=== PATIENT | male | born 1945 | race Caucasian/White ===

== ENCOUNTER → 2017-12-04 | Outpatient (CLI) | payer OTHER, BC ==
[2017-12-04 09:29] LABS: CALCIUM 9.9 mg/dL (8.5-10.1); CREATININE 1.2 mg/dL (0.7-1.3); POTASSIUM 4.3 mmol/L (3.5-5.1)
== END ==
LOC: LABMALL 08:57
PROVIDERS: Nurse Practitioner
DX: K57.10 Diverticulosis of small intestine without perforation or abscess without bleeding (principal); K57.30 Diverticulosis of large intestine without perforation or abscess without bleeding; K44.9 Diaphragmatic hernia without obstruction or gangrene; J98.4 Other disorders of lung; K76.9 Liver disease, unspecified; Z90.49 Acquired absence of other specified parts of digestive tract

== ENCOUNTER → 2017-12-06 | Outpatient (CLI) | payer OTHER, BC | LOC: MRI 13:41 | DX: K76.89 Other specified diseases of liver (principal); N28.1 Cyst of kidney, acquired; K57.90 Diverticulosis of intestine, part unspecified, without perforation or abscess without bleeding; R59.9 Enlarged lymph nodes, unspecified ==

== ENCOUNTER 2017-12-11 07:59 | Inpatient (IN) | payer OTHER, BC ==
[2017-12-11] VITALS (8 sets, daily range): BP systolic 98–1065; BP diastolic 55–84
[~2017-12-11] VITALS: Ht 172.7 cm; Wt 72.3 kg
--- NOTE | ~2017-12-11 | PATH ---
[facility] [place] [address] PATHOLOGY RPT PROCEDURE Name: TOMMIE SIMEON Aryan Room #: 432-P [facility] IN .R.#: [id number] Admission: 12/11/17 Date of : 49 Discharge: 12/12/17 Report #: [id number] Path Case #: [id number] [facility] Accession Number: [id number] . 01 Material submitted: . BIOPSY, DISTAL ESOPHAGUS . 01 Clinical history: . Pre-OP DX: Abdominal pain Post-OP DX: Mass lesion distal esophagus, hiatal hernia . 02 Diagnosis: Squamous mucosa, mass lesion distal esophagus, endoscopic biopsy: - MODERATE TO POORLY DIFFERENTIATED CARCINOMA (PLEASE SEE COMMENT). (IUV:ayla; 12/13/2017) QMS/12/13/2017 . 02 Comment: Examination shows a malignant epithelial tumor with scattered rare areas of intracytoplasmic mucin as well as other areas in sheets with no gland formation. The overlying squamous epithelium shows reactive features. In situ dysplasia is not identified. There is no glandular component present within the tumor, or within the biopsy tissue (gastric-type mucosa or intestinal metaplasia). The tumor is morphologically similar to the one present and sampled as "liver mass", our biopsy number [id number]. Please see separate report for details. . Co-review: Dr. Almaz Colvin . Findings are conveyed to Dr. Andres Vargas at approximately 11:15 a.m. on 12/13/2017. . 02 Addendum: . In an attempt to further characterize the moderate to poorly differentiated carcinoma, properly controlled immunohistochemical stains are performed. . (Block A1) CDX-2: tumor cell nuclei diffusely reactive P63: tumor cell nuclei essentially non-reactive CK7: very rare scattered tumor cells reactive . Overall, the immunohistochemical staining pattern is suggestive of a moderate to poorly differentiated adenocarcinoma. Clinical and radiographic correlation is required. (CLW:; 12/14/17) . [address] [address] PATHOLOGY RPT PROCEDURE Name: TOMMIE SIMEON Room #: 432-P [facility] IN M.R.#: [id number] Admission: 12/11/17 Date of : 49 Discharge: 12/12/17 Report #: [id number] Path Case #: [id number] . QRQ/12/14/2017 Addendum Electronically Signed by Almaz Colvin MD, Pathologist . 02 Electronically signed: . Parris Joe MD, Pathologist NPI- [id number] . 01 Gross description: . Received in formalin labeled "Tommie Simeon, BX mass lesion distal esophagus," are multiple segments of baird soft tissue measuring 2.3 x 0.4 x 0.2 cm in aggregate dimensions. The specimen is filtered and submitted entirely in cassette A1. (TSD; 12/12/2017) TOB/TOB . 02 Pathologist provided ICD-10: C15.5 . 02 CPT . 853249 Performed at: [address], [place] [id number] MD Osmany Vilchis MD Phone: [phone] Performed at: [address] [id number] MD Parris Joe MD Phone: [phone]
--- NOTE | ~2017-12-11 | P ---
[facility] [place] [address] PROCEDURE REPORT Name: DONNA SIMEON Aryan Room #: 432-P [facility] IN M.R.#: [id number] Admission: 12/11/17 Attend Phys: Andres Vargas MD Discharge: 12/12/17 Date of : 49 Report #: [id number] THIS REPORT FOR: //name// CC: Andres Vargas MD UPPER ENDOSCOPY REPORT BRIEF HISTORY: The patient is a 72-year-old male who recently developed diffuse upper abdominal pain. He also reported black stool and he does have some difficulty with swallowing liquids. He has also had weight loss. A CT done yesterday reveals evidence of multiple lesions in the liver suggestive of metastatic disease. PREOPERATIVE DIAGNOSES: Abdominal pain, dysphagia and weight loss. POSTOPERATIVE DIAGNOSES: 1. Mass lesion in the distal esophagus. 2. Erythematous gastritis. 3. Multiple duodenal diverticulum. MEDICATIONS: Deep sedation with propofol per anesthesia. SPECIMEN: Biopsies of esophageal mass. ESTIMATED BLOOD LOSS: 3 mL. PROCEDURE: EGD with biopsy. FINDINGS: Prior to propofol sedation, procedure of upper endoscopy was discussed with the patient as well as potential risks and its complications. He indicates he understands and desires to proceed. DESCRIPTION OF PROCEDURE: With the patient in left lateral decubitus position, the Fuji video endoscope was inserted in the cervical esophagus under direct vision without difficulty. Examination of this organ through its entire length revealed normal esophageal mucosa in the proximal esophagus; however, distally, there was a mass lesion and more proximally appeared to be a bilobed mass lesion. Distally, it was superficial ulcerative, but active bleeding was not encountered at this time. The lesion measures about 3-4 cm in length. It bulges in the lumen, but does not completely obstructing. The endoscope does pass easily to the lesion. The scope was advanced beyond the lesion and a small hiatus hernia was encountered. The mucosa and hernia was unremarkable. Scope was advanced in the stomach, was examined on end view as well as retroflexed views. There was a pattern of erythema, but no ulcers or erosions were seen. There were no retained solids or liquids in the stomach. Upon retroflexion, no mass lesions were seen. However, in the retroflexed position, you could see the [address] [address] PROCEDURE REPORT Name: BLANCODONNA Aryan Room #: 432-P [facility] IN [facility].#: [id number] Admission: 12/11/17 Attend Phys: Andres Vargas MD Discharge: 12/12/17 Date of : 49 Report #: [id number] ulcerated lesion extending down to the gastroesophageal junction. The pylorus and duodenal bulb was normal. Examination of postbulbar duodenum revealed at least two diverticula one which was a large diverticulum seen on CT. The other was smaller. At that point, the scope was slowly withdrawn and careful circumferential views were obtained. Biopsies were obtained of the mass lesion. The patient tolerated the procedure well. DISPOSITION: The patient with findings of a mass lesion distal esophagus. A suspicion is obviously of an esophageal cancer with metastatic disease to the liver. We will follow up on biopsies obtained today as well as results of liver biopsy yesterday. By: 1214 0033 Devin Cook MD /nt
--- NOTE | ~2017-12-11 | PATH ---
[facility] [address] [place] [address] PATHOLOGY RPT PROCEDURE Name: TOMMIE SIMEON Room #: 432-P [facility] IN M.R.#: [id number] Admission: 12/11/17 Date of : 49 Discharge: 12/12/17 Report #: [id number] Path Case #: [id number] [facility] Accession Number: [id number] . 01 Material submitted: . FOCAL LIVER MASS BX . 01 Clinical history: . Focal liver mass . 02 Diagnosis: Liver, liver mass, needle core biopsy: - POSITIVE FOR MALIGNANCY; COMPATIBLE WITH A METASTATIC CARCINOMA MORPHOLOGICALLY SIMILAR TO THE "MASS LESION DISTAL ESOPHAGUS." (SEE COMMENT) QRQ/12/13/2017 . 02 Comment: The tumor is morphologically identical to the one sampled as "mass lesion distal esophagus" our specimen number [id number]. Please see separate report for details. . Co-review: Dr. Almaz Colvin . These findings are conveyed to Dr. Andres Vargas at approximately 11:15 a.m. on 12/13/17. (IUV:mgr; 12/13/17) . 02 Electronically signed: . Parris Joe MD, Pathologist NPI- [id number] . 01 Gross description: . Received in formalin labeled "Tommie Simeon, liver mass BX" and consists of 5 montoya red tissue cores ranging in length from 0.2 cm-1.3 cm, each with a uniform diameter of 0.1 cm. The specimen is entirely submitted as A1. (KAMRYN; 12/12/2017) JBR/JBR . 02 Pathologist provided ICD-10: C78.7 . 02 CPT . 076502 Performed at: [facility] [address] [id number] [address] [place] [address] PATHOLOGY RPT PROCEDURE Name: TOMMIE SIMEON Room #: 432-P [facility] IN [facility].#: [id number] Admission: 12/11/17 Date of : 49 Discharge: 12/12/17 Report #: [id number] Path Case #: [id number] MD Osmany Vilchis MD Phone: [phone] Performed at: [address] [id number] MD Parris Joe MD Phone: [phone]
[2017-12-11 08:33] LABS: HEMATOCRIT 47.2 % (42.0-52.0); MCH 30.2 pg (26.0-34.0); MCHC 33.8 g/dL (28.0-37.0); MCV 89.5 fL (80.0-100.0); RBC 5.28 mil/uL (4.50-6.00); RDW 12.9 % (10.5-14.5); WBC 7.1 thou/uL (4.0-11.0)
[2017-12-11 08:46] LABS: ALBUMIN 4.2 g/dL (3.4-5.0); CALCIUM 9.6 mg/dL (8.5-10.1); CREATININE 1.3 mg/dL (0.7-1.3); POTASSIUM 5.3 mmol/L (3.5-5.1); TOTAL BILIRUBIN 0.5 mg/dL (<0.1-1.0); TOTAL PROTEIN 7.9 g/dL (6.4-8.2)
[2017-12-11] MEDS ORDERED: PERCOCET PO (21:13)
[2017-12-11] MEDS ORDERED: PROTONIX 20 MG20 M1 PO (21:14)
[2017-12-11] MEDS ORDERED: PRAVACHOL20 MG PO (21:14)
[2017-12-11] MEDS ORDERED: CARAFATE 1 GM TA1 G1 PO (21:14)
[2017-12-12 04:15] VITALS: BP 110/70
[2017-12-12 06:35] LABS: ALBUMIN 3.3 g/dL (3.4-5.0); CALCIUM 8.8 mg/dL (8.5-10.1); CREATININE 1.1 mg/dL (0.7-1.3); POTASSIUM 4.6 mmol/L (3.5-5.1); TOTAL BILIRUBIN 0.4 mg/dL (<0.1-1.0); TOTAL PROTEIN 6.3 g/dL (6.4-8.2)
[2017-12-12 07:43] VITALS: BP 135/87
[2017-12-12] MEDS ORDERED: OXYCODONE-APAP1 EAC6 PO (13:06)
[2017-12-12 16:28] VITALS: BP 151/98
[2017-12-12 17:22] VITALS: BP 151/98
== END 2017-12-12 18:45 | disposition home or self-care (01) | DRG 392 ==
LOC: 4E 07:59 → ENTRNSPT 12-12 17:43 → 4E 12-12 18:45
PROVIDERS: Family Medicine
PROC: 0DB58ZX Excision of Esophagus, Via Natural or Artificial Opening Endoscopic, Diagnostic (ICD-10-PCS; principal; 2017-12-12)
PROC: 0FB13ZX Excision of Right Lobe Liver, Percutaneous Approach, Diagnostic (ICD-10-PCS; 2017-12-12)
DX: K22.2 Esophageal obstruction (principal); K57.12 Diverticulitis of small intestine without perforation or abscess without bleeding; K76.9 Liver disease, unspecified; R16.0 Hepatomegaly, not elsewhere classified; K57.10 Diverticulosis of small intestine without perforation or abscess without bleeding; E78.00 Pure hypercholesterolemia, unspecified; K29.70 Gastritis, unspecified, without bleeding; R63.0 Anorexia; K21.9 Gastro-esophageal reflux disease without esophagitis; Z90.49 Acquired absence of other specified parts of digestive tract; K44.9 Diaphragmatic hernia without obstruction or gangrene; R13.10 Dysphagia, unspecified; Z98.42 Cataract extraction status, left eye; Z98.41 Cataract extraction status, right eye; Z87.891 Personal history of nicotine dependence
CPT/HCPCS: 10783; 62110; 62900; 70005

== ENCOUNTER → 2017-12-21 | Outpatient (CLI) | payer OTHER, BC ==
[~2017-12-21] VITALS: Ht 172.7 cm; Wt 72.6 kg
[~2017-12-21] MED LIST: ALLEGRA ALLERG180 MG PO; ASPIR 8181 MG PO; CALCIUM 500 +1 EAC5 PO; CARAFATE 1 GM TA1 G1 PO; MEN'S MULTI-VI1 EACH PO; OXYCODONE-APAP1 EAC6 PO; OXYCONTIN20 M1 PO; PERCOCET 7.5-31 EACH PO; PERCOCET PO; PRAVACHOL20 MG PO; PROTONIX 20 MG20 M1 PO
--- NOTE | ~2017-12-21 | P ---
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 He is having esophageal dysphagia and also having pain with swallowing. He has been losing weight as well. Next week, he is to start chemoradiation. PREOPERATIVE DIAGNOSIS: Metastatic adenocarcinoma of the esophagus with esophageal dysphagia and painful swallowing. POSTOPERATIVE DIAGNOSIS: Metastatic adenocarcinoma of the esophagus with esophageal dysphagia and painful swallowing. MEDICATIONS: Deep sedation with propofol for anesthesia. SPECIMEN: None. ESTIMATED BLOOD LOSS: 3 mL. PROCEDURE: Percutaneous endoscopic gastrostomy tube placement. FINDINGS: The procedure of PEG tube placement was discussed with the patient as well potential risks and its complications. He indicates he understands and desires to proceed. The patient was placed in the supine position with his head and chest raised about 30 degrees. Subsequently, Olympus video endoscope was inserted in the cervical esophagus under direct vision without difficulty. Examination of this organ throughout its entire length revealed normal esophageal mucosa in the proximal and mid esophagus. However, once again distally the mass lesion was identified. Active bleeding was not seen. The scope was very carefully passed through the lumen and passed easily through the segment with the tumor into the gastric lumen. The scope was advanced in the stomach and was examined on end view as well as retroflexed views. He had normal appearing gastric mucosa. Upon retroflexion, no mass lesions were seen. The pylorus was normal. Duodenal bulb was normal. The scope was then withdrawn back into the stomach and light was aimed against the anterior gastric wall. A good transilluminating light was seen in the upper abdomen just left of the midline. The skin was prepped and draped using usual sterile technique. The skin was subsequently infiltrated with Xylocaine and using a safetrack technique, the infiltrating needle was advanced in the gastric lumen under direct endoscopic vision without difficulty. [address] [address] PROCEDURE REPORT Name: DONNA SIMEON Aryan Room #: [facility]#: [id number] Admission: 12/21/17 Attend Phys: Devin Cook MD Discharge: Date of : 49 Report #: [id number] Then the area was infiltrated with Xylocaine. Subsequently, a 1 cm skin incision was made. Introducer needle and stylet were advanced in the gastric lumen under direct endoscopic vision without difficulty. A guidewire was advanced, retrieved and pulled out of the mouth. Subsequently, a 20-Malay feeding gastrostomy tube was advanced over the wire. The leading edge was seen coming through the incision, was grasped and pulled into place. The scope was reinserted. The external restraining device was applied and final adjustments were made under direct endoscopic vision. The patient tolerated the procedure well. CONDITION OF THE PATIENT UPON DISCHARGE: Following the procedure, the patient was drowsy. He will be discharged home when fully ambulatory. INSTRUCTIONS TO THE PATIENT AND FAMILY AT THE TIME OF DISCHARGE: The patient with adenocarcinoma of the esophagus. He will require nutritional support especially with chemoradiation. PEG tube placed without difficulty. We will place consult to home health services for outpatient PEG tube feedings. Also, he should remain n.p.o. for the next 4 hours. Thereafter, he can take clear liquids for the remainder of the day. He may start PEG tube feedings tomorrow. Also I will have him return to see me in followup in the office in about 2 weeks. <ELECTRONICALLY SIGNED> By: Devin Cook MD 12/21/17 1122 0852 0941 Devin Cook MD /nt
== END | disposition home or self-care (01) ==
LOC: GI 07:16
DX: C78.89 Secondary malignant neoplasm of other digestive organs (principal); C22.7 Other specified carcinomas of liver
CPT/HCPCS: 62110; 62900

== ENCOUNTER 2018-04-14 07:15 | Inpatient (IN) | payer OTHER, BC ==
[~2018-04-14] VITALS: Ht 172.7 cm; Wt 69.0 kg
[2018-04-14] VITALS (36 sets, daily range): BP systolic 81–134; BP diastolic 26–85
--- NOTE | ~2018-04-14 | HC ---
[facility] [place] [address] CONSULTATION Name: DONNA SIMEON Aryan Room #: 240-P ADM IN .R.#: [id number] Admission: 04/14/18 Attend Phys: Alfred Maharaj MD Discharge: Date of : 49 Report #: [id number] THIS REPORT FOR: //name// CC: Alfred Escobar MD DATE OF SERVICE: 04/14/2018 HISTORY OF PRESENT ILLNESS: The patient is a 73-year-old male with a history of metastatic esophageal cancer. This was diagnosed in December of this year by my partner, Dr. Cook. He was noted to have metastatic disease to his liver. He apparently has been undergoing chemotherapy treatment at and recently received his eighth round of chemotherapy. He reports an episode of feeling very weak and falling to the ground this morning. He also had an episode of hematemesis. No previous or recent history of GI bleed. He has been on Xarelto for pulmonary embolus apparently, was also on aspirin. He does take Carafate and Protonix as well. He denies any melena or bright red blood per rectum. He has a PEG tube that was placed earlier this year. This was aspirated with bright red blood noted. He is feeling weak in general. He has not had a CT scan of the abdomen and pelvis, which showed evidence of metastatic disease but no other acute findings at this time. His hemoglobin on admission was 9.5 at 7:25 this morning. He is now in the ICU. He is on Levophed. His hemoglobin at 10:05 was 4.7. This was prior to beginning his blood transfusion, which he is actually on the second unit of packed cells at this time. He was given octreotide. He is on a Protonix drip. He has also been given the reversal agent for Xarelto. The patient is currently alert. Denies any significant abdominal pain. No chest pain or shortness of breath. He does feel cold. Again, he feels weak in general. PAST MEDICAL HISTORY: Esophageal cancer involving the distal esophagus. Tumor was described at 4 cm in December on upper endoscopy; history of metastatic disease to the liver, undergoing chemotherapy; history of PEG tube; previous cholecystectomy; COPD and hypercholesterolemia. MEDICATIONS ON ADMISSION: Carafate, Protonix, OxyContin, aspirin 81 mg, apparently on Xarelto and this is not listed on his sheet, calcium carbonate, multivitamin, Bree and Percocet. ALLERGIES: No known drug allergies. SOCIAL HISTORY: Previous history of cigarette smoking. He denies any alcohol use at this time. FAMILY HISTORY: [place] [address] CONSULTATION Name: BLANCODONNA Aryan Room #: 240-P [facility] IN .R.#: [id number] Admission: 04/14/18 Attend Phys: Alfred Maharaj MD Discharge: Date of : 49 Report #: [id number] REVIEW OF SYSTEMS: As per HPI. PHYSICAL EXAMINATION: VITAL SIGNS: His temperature is 36.4. Currently, his blood pressure is 125/56 with a pulse of 113. He has been significantly hypotensive throughout the morning, however, in the Emergency Room as well as in the CAT scan. He has been given IV fluids and again is getting blood at this time and respiratory rate is 14. GENERAL: He is alert and oriented x 3. He does appear to be weak. HEENT: Sclerae nonicteric. Oropharynx clear. NECK: Supple. CARDIOVASCULAR: Regular rhythm. Tachycardic. CHEST: Clear to auscultation anteriorly bilaterally. ABDOMEN: Soft. PEG tube is in place. I did flush the PEG with water and bright red blood was noted, aspirated, nontender and nondistended. EXTREMITIES: No cyanosis, clubbing or edema. LABORATORY DATA: Sodium 140, potassium 3.7, chloride 103, bicarbonate 23, BUN 22, creatinine 1.3 and glucose 172. Lactic acid level early this morning was 5.2 and repeat is 7.0. Calcium 8.3. Total bilirubin 0.6. AST 42, ALT is 41 and alkaline phosphatase is 183. Troponin less than 0.06. Albumin 2.6 and total protein 5.4. WBC is 38.4, hemoglobin was 9.5 and is 4.7 at this time and platelet count is 134. INR 1.4. RADIOLOGICAL DATA: CT of the head, moderate cerebral atrophy and no acute changes. CT scan of the chest, abdomen and pelvis today: Lungs are clear, new small areas of osteoblastic activity of the thoracic and lumbar spine suggesting bony metastatic involvement, several large low density masses within the liver, mild thickening in the esophagus at the GE junction suggesting a hiatal hernia considered minimal diverticulitis versus colitis at the junction of the descending and the sigmoid colon. ASSESSMENT AND PLAN: Hematemesis. The patient is hypotensive, significant drop in his hemoglobin. Complex case as the patient has a history of esophageal cancer with metastatic disease, on Xarelto and aspirin. I had a long discussion with the patient and could consider upper endoscopy; however, he is too unstable at this time, both from a hemoglobin standpoint as well as vital signs. I explained to the patient even if we could perform an upper endoscopy when he is more stable, if this is bleeding from the tumor, this is difficult to control if possible. At this time, we would agree with supportive care with packed cells, proton pump inhibitor, continuing to hold his anticoagulation. Of note, he was given reversal agent for his Xarelto. He is at high risk for sedation and upper endoscopy at this time. Need to continue to monitor him very closely. Obviously, the patient understands and agrees. Plan is to repeat hemoglobin after second unit of packed cells. [facility] [address] [place] [address] CONSULTATION Name: DONNA SIMEON Room #: 240-P [facility] IN [facility]#: [id number] Admission: 04/14/18 Attend Phys: Alfred Maharaj MD Discharge: Date of : 49 Report #: [id number] Thank you for allowing me to participate in his care. <ELECTRONICALLY SIGNED> By: Boaz John MD 04/15/18 0933 1226 0329 Boaz John MD /nt
--- NOTE | ~2018-04-14 | PATH ---
[facility] [place] [address] PATHOLOGY RPT PROCEDURE Name: TOMMIE SIMEON Room #: 418-P [facility] IN M.R.#: [id number] Admission: 04/14/18 Date of : 49 Discharge: 04/20/18 Report #: [id number] Path Case #: [id number] [facility] Accession Number: [id number] . 01 Material submitted: . BX OF POLYP TRANSVERSE COLON . 01 Clinical history: . Pre-op diagnosis: Anemia Post-op diagnosis: Severe pain, diverticulosis, colon polyp . 02 Diagnosis: Colonic mucosa "biopsy of polyp transverse colon": - Tubular adenoma. - There is no evidence of high-grade dysplasia or malignancy. (SHA:ayla; 04/24/2018) QMS/04/24/2018 . 02 Electronically signed: . Franki France MD, Pathologist NPI- [id number] . 01 Gross description: . The specimen is received in formalin, labeled "Tommie Simeon, biopsy of polyp in transverse colon". Received is a segment of pale baird soft tissue measuring 0.5 cm in maximum dimensions. The specimen is submitted entirely in cassette A1. (CAA; 04/23/2018) QAC/QAC . 02 Pathologist provided ICD-10: D12.3 . 02 CPT . 268023 Specimen Comment: A courtesy copy of this report has been sent to Specimen Comment: [phone], , . Specimen Comment: Report sent to , DR LORENZO / DR RIZVI Performed at: [address], [place] [id number] MD Osmany Vilchis MD Phone: [phone] Performed at: [address] [id number] MD Parris Joe MD Phone: [phone]
--- NOTE | ~2018-04-14 | HC ---
[facility] [place] [address] CONSULTATION Name: DONNA SIMEON Aryan Room #: 240-P [facility] IN .R.#: [id number] Admission: 04/14/18 Attend Phys: Alfred Maharaj MD Discharge: Date of : 49 Report #: [id number] THIS REPORT FOR: //name// CC: Boaz Vargas REQUESTING PHYSICIAN: Dr. Alfred Maharaj. REASON FOR CONSULTATION: Adenocarcinoma of esophagus and GI bleed. HISTORY OF PRESENT ILLNESS: The patient is a 73-year-old male with a diagnosis of adenocarcinoma of the distal esophagus, metastatic to liver and diagnosed on 12/04/2017. The patient has been receiving FOLFOX chemotherapy with Neulasta growth factor support and had been responding. He received his 8th cycle of chemotherapy on about 04/10/2018. The patient was admitted to the hospital on 04/14/2018 for GI bleeding. Here, he has been hypertensive, he has received 4 units of blood, he has had both some blood per rectum and also had hematemesis as mentioned. Note that he had been on Xarelto for pulmonary embolus that had been found back in January also. Also, his platelets have drifted down, he is 24,000 today. Earlier he had been on pressors, he had been thought to possibly be septic. He is now improving, the pressors are lesser amounts. PAST MEDICAL HISTORY: The patient at this time mostly complains about feeling tired and slightly short of air. Abdomen is slightly uncomfortable, though not really in pain. History as mentioned is notable for the esophageal cancer that is HER2/chanelle negative of the lower esophagus, had been responding on most recent scan done, I believe, in January and his tumor marker has been declining further. Also, has a history of PE as mentioned above. Also, history of hypercholesterolemia and GERD. Here he has had the hypertension. History of TIA in the past and history of transaminitis. Also gallbladder removal, cataract removal, COPD. 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 Currently retired. MEDICATIONS: At this time in the hospital currently include lorazepam p.r.n., vancomycin, levofloxacin, Zosyn, norepinephrine drip, pantoprazole drip, morphine p.r.n., had been on octreotide which look like it has been held. PHYSICAL EXAMINATION: GENERAL: The patient appears his stated age. He is currently in ICU bed. VITAL SIGNS: Height is 5 feet 8 inches, 172.7 cm, weight 152 pounds or 69.0 [place] [address] CONSULTATION Name: DONNA SIMEON Room #: 240-P [facility] IN [facility]#: [id number] Admission: 04/14/18 Attend Phys: Alfred Maharaj MD Discharge: Date of : 47 Report #: [id number] kilograms. Blood pressure is 106/61, temperature 98, respirations 25, pulse 82. MOOD: The patient is alert. He is conversant. NEUROLOGIC: Speech and thought pattern appear to be normal. LUNGS: Have symmetric respirations. HEART: Regular rate. ABDOMEN: Soft, no masses, mildly uncomfortable, but not tender. EXTREMITIES: Without clubbing or cyanosis. SKIN: Warm. LABORATORY DATA: Here notable for BUN of 6, creatinine 0.8. AST 42, total bilirubin 0.6, albumin 2.6. Coags normal on admission. WBC 28.9. Hemoglobin this morning is 6.6, on admission had been 9.5, then dropped to 4.7. Note that he has had 4 units of packed red blood cells so far. MCV 91.6. Platelets on admission have been 134, yesterday 41, today 24,000. Differential has excess neutrophils. UA, 1+ blood. IMAGING: This admit includes a CAT scan compared to January, which showed slight improvement and difficult to see, liver metastasis. ASSESSMENT AND PLAN: 1. 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 Hold chemotherapy at this point. The patient appears to be responding, though GI bleed makes one wonder if this is correct. 2. History of pulmonary embolism, had been on Xarelto since January, has been held. Also received Kcentra to help reverse. May need to consider IVC filter at some point. Currently, has SCDs in place. 3. Leukocytosis, could be in part related to Neulasta growth factor or sepsis. I agree with antibiotics. Cultures pending. 4. Gastrointestinal bleed, has been seen by Gastroenterology, is on PPI. Had been on octreotide transfuse. Would agree that an endoscopy when the patient is more stable is appropriate. At this point, I would be leery that we might knock the clot loose and increase bleeding. We will defer to GI, but I would lean towards observation at this point. 5. Hypertension, pressors as needed. 6. Anemia. Transfuse to keep hemoglobin of 7. Has received 4 units, will probably receive another unit today. We will follow q. 6 CBCs. 7. Platelets drifting down. We will arrange for single donor platelets today. We would like to keep platelets above 411661-05,000. 8. Nutrition, probably begin feeding. 9. Hyperlipidemia, meds per others. 10. Chronic obstructive pulmonary disease per others. [facility] [address] [place] [address] CONSULTATION Name: BLANCODONNA Room #: 240-P [facility] IN .R.#: [id number] Admission: 04/14/18 Attend Phys: Alfred Maharaj MD Discharge: Date of : 47 Report #: [id number] PROGNOSIS: Guarded at this time. <ELECTRONICALLY SIGNED> By: Kun Escobar MD 04/18/18 0738 0756 2036 Kun Escobar MD /nt
--- NOTE | ~2018-04-14 | EKG ---
[address] [place] [address] ELECTROCARDIOGRAM REPORT Name: BLANCODONNA Room #: 240-[facility] IN ..#: [id number] Admission: 04/14/18 Attend Phys: Alfred Maharaj MD Discharge: Date of : 47 Report #: [id number] THIS REPORT FOR: //name// [facility] ED Test Date: 2018-04-14 Test Time: 07:38:40 Pat Name: DONNA SIMEON Department: Room: 240 Gender: M Tube Balancer: JAMIE : 1945 Requested By: Cristina Galarza Order Number: [id number] MD: Lamberto Bosch Measurements Intervals [place] Rate: 103 P: 79 NE: 145 QRS: 0 QRSD: 75 T: 64 QT: 359 QTc: 470 Interpretive Statements Sinus tachycardia Low voltage, extremity leads Compared to ECG 01/23/2018 21:44:34 No significant change was found Electronically Signed On 04-16-2018 8:53:48 CDT by Lamberto Bosch [email or web address] <ELECTRONICALLY SIGNED> By: Lamberto Bosch MD, [facility] 04/16/18 0853 7 7 Lamberto Bosch MD, [facility] /EPI
[2018-04-14 07:47] LABS: HEMATOCRIT 28.8 % (42.0-52.0); HEMOGLOBIN 9.5 gm/dL (14.0-18.0); MCH 32.9 pg (26.0-34.0); MCHC 33.1 g/dL (28.0-37.0); MCV 99.2 fL (80.0-100.0); PLATELET COUNT 134 thou/uL (150-400); RDW 19.2 % (10.5-14.5); WBC 38.4 thou/uL (4.0-11.0)
[2018-04-14 07:57] LABS: ANION GAP 14 mmol/L (7-16); BUN 22 mg/dL (7-18); CALCIUM 8.3 mg/dL (8.5-10.1); CHLORIDE 103 mmol/L (98-107); CO2 23 mmol/L (21-32); CREATININE 1.3 mg/dL (0.7-1.3); GLUCOSE 172 mg/dL (74-106); POTASSIUM 3.7 mmol/L (3.5-5.1); SODIUM 140 mmol/L (136-145)
[2018-04-14 08:01] LABS: APTT 28.2 Seconds (24.5-32.8); INR 1.4; PROTIME 14.5 Seconds (9.3-11.4)
[2018-04-14 08:05] LABS: ALBUMIN 2.6 g/dL (3.4-5.0); SGOT 42 U/L (15-37); SGPT 41 U/L (30-65); TOTAL BILIRUBIN 0.6 mg/dL (<0.1-1.0); TOTAL PROTEIN 5.4 g/dL (6.4-8.2); TROPONIN-I <0.06 ng/mL (<0.06)
[2018-04-14 08:36] LABS: ABSOLUTE NEUTROPHILS 36.5 thou/uL (1.4-8.2)
[2018-04-14 08:37] LABS: ANISOCYTOSIS 2+
[2018-04-14 11:47] LABS: HEMOGLOBIN 4.7 gm/dL (14.0-18.0)
[2018-04-14 11:48] LABS: HEMATOCRIT 14.7 % (42.0-52.0)
[2018-04-14 13:52] LABS: HEMATOCRIT 26.2 % (42.0-52.0)
[2018-04-14 13:55] LABS: HEMOGLOBIN 8.9 gm/dL (14.0-18.0)
[2018-04-15] VITALS (77 sets, daily range): BP systolic 82–144; BP diastolic 45–79
[2018-04-15 03:54] LABS: CALCIUM 7.4 mg/dL (8.5-10.1); CREATININE 1.1 mg/dL (0.7-1.3)
[2018-04-15 04:00] LABS: POTASSIUM 4.9 mmol/L (3.5-5.1)
[2018-04-15 04:39] LABS: MCH 30.6 pg (26.0-34.0); MCHC 33.1 g/dL (28.0-37.0); RBC 2.28 mil/uL (4.50-6.00); RDW 18.6 % (10.5-14.5)
[2018-04-15 04:48] LABS: MCV 92.5 fL (80.0-100.0); WBC 51.7 thou/uL (4.0-11.0)
[2018-04-15 18:01] LABS: HEMATOCRIT 23.4 % (42.0-52.0)
[2018-04-15 18:11] LABS: URINE BILIRUBIN NEGATIVE (Negative); URINE BLOOD 1+ (Negative); URINE CLARITY CLEAR; URINE COLOR YELLOW; URINE GLUCOSE-RANDOM* NEGATIVE (Negative); URINE KETONES NEGATIVE (Negative); URINE NITRITE-REFLEX NEGATIVE (Negative); URINE PROTEIN (DIPSTICK) NEGATIVE (Negative); URINE SPECIFIC GRAVITY 1.025 (1.005-1.035); URINE UROBILINOGEN 0.2 E.U./dl (0.2-1.0)
[2018-04-15 18:12] LABS: URINE LEUKOCYTES-REFLEX TRACE (Negative)
[2018-04-15 19:04] LABS: CASTS None Seen /LPF (None Seen); MUCUS >6 Heavy strn/LPF (None Seen); SQUAMOUS 0-3 Few /LPF (0-3)
[2018-04-15 19:05] LABS: BACTERIA-REFLEX 1-9 Few /HPF (None Seen); CRYSTALS None Seen /LPF (None Seen); URINE RBC 3-10 Few /HPF (0-2); URINE WBC-REFLEX 0-5 Rare /HPF (0-5)
[2018-04-16] VITALS (87 sets, daily range): BP systolic 83–135; BP diastolic 38–76
[2018-04-16 05:24] LABS: HEMOGLOBIN 7.3 gm/dL (14.0-18.0)
[2018-04-16 05:26] LABS: HEMATOCRIT 21.5 % (42.0-52.0); MCH 30.7 pg (26.0-34.0); MCHC 33.8 g/dL (28.0-37.0); MCV 90.8 fL (80.0-100.0); RBC 2.37 mil/uL (4.50-6.00); RDW 19.4 % (10.5-14.5)
[2018-04-16 05:32] LABS: CALCIUM 7.2 mg/dL (8.5-10.1); CREATININE 0.8 mg/dL (0.7-1.3); POTASSIUM 3.4 mmol/L (3.5-5.1)
[2018-04-16 05:40] LABS: WBC 36.2 thou/uL (4.0-11.0)
[2018-04-17] VITALS (53 sets, daily range): BP systolic 97–137; BP diastolic 57–76
[2018-04-17 05:20] LABS: CALCIUM 7.2 mg/dL (8.5-10.1); CREATININE 0.8 mg/dL (0.7-1.3); POTASSIUM 3.5 mmol/L (3.5-5.1)
[2018-04-17 05:32] LABS: HEMOGLOBIN 6.6 gm/dL (14.0-18.0); MCHC 33.4 g/dL (28.0-37.0)
[2018-04-17 05:33] LABS: MCH 30.6 pg (26.0-34.0); MCV 91.6 fL (80.0-100.0); RBC 2.15 mil/uL (4.50-6.00); RDW 18.9 % (10.5-14.5); WBC 28.9 thou/uL (4.0-11.0)
[2018-04-17 05:37] LABS: HEMATOCRIT 19.6 % (42.0-52.0)
[2018-04-17 13:38] LABS: HEMATOCRIT 22.1 % (42.0-52.0); HEMOGLOBIN 7.6 gm/dL (14.0-18.0); RBC 2.42 mil/uL (4.50-6.00)
[2018-04-17 13:49] LABS: MCH 31.5 pg (26.0-34.0); MCHC 34.5 g/dL (28.0-37.0); MCV 91.2 fL (80.0-100.0); RDW 17.6 % (10.5-14.5); WBC 19.5 thou/uL (4.0-11.0)
[2018-04-17 19:08] LABS: HEMOGLOBIN 7.8 gm/dL (14.0-18.0); MCH 30.8 pg (26.0-34.0); MCHC 33.9 g/dL (28.0-37.0); RBC 2.53 mil/uL (4.50-6.00); RDW 17.6 % (10.5-14.5); WBC 18.1 thou/uL (4.0-11.0)
[2018-04-18] VITALS (33 sets, daily range): BP systolic 100–145; BP diastolic 47–86
[2018-04-18 01:36] LABS: HEMATOCRIT 23.1 % (42.0-52.0); HEMOGLOBIN 7.9 gm/dL (14.0-18.0); MCHC 34.2 g/dL (28.0-37.0); MCV 90.6 fL (80.0-100.0); RBC 2.55 mil/uL (4.50-6.00); WBC 13.7 thou/uL (4.0-11.0)
[2018-04-18 01:48] LABS: CALCIUM 7.6 mg/dL (8.5-10.1); CREATININE 0.7 mg/dL (0.7-1.3); POTASSIUM 3.5 mmol/L (3.5-5.1)
[2018-04-18 08:28] LABS: WBC 11.1 thou/uL (4.0-11.0)
[2018-04-18 08:29] LABS: HEMATOCRIT 23.4 % (42.0-52.0); HEMOGLOBIN 8.1 gm/dL (14.0-18.0); MCH 31.2 pg (26.0-34.0); MCHC 34.4 g/dL (28.0-37.0); MCV 90.6 fL (80.0-100.0); RBC 2.59 mil/uL (4.50-6.00); RDW 17.6 % (10.5-14.5)
[2018-04-18 18:26] LABS: HEMOGLOBIN 8.7 gm/dL (14.0-18.0)
[2018-04-19 00:13] VITALS: BP 119/75
[2018-04-19 00:24] LABS: HEMOGLOBIN 8.3 gm/dL (14.0-18.0)
[2018-04-19 05:11] VITALS: BP 112/70
[2018-04-19 07:45] VITALS: BP 108/68
[2018-04-19 08:53] LABS: HEMATOCRIT 24.3 % (42.0-52.0); HEMOGLOBIN 8.5 gm/dL (14.0-18.0)
[2018-04-19 09:04] LABS: ALBUMIN 2.4 g/dL (3.4-5.0); DIRECT BILIRUBIN 0.2 mg/dL (<0.1-0.3); TOTAL BILIRUBIN 0.4 mg/dL (<0.1-1.0)
[2018-04-19 19:39] VITALS: BP 124/84
[2018-04-20] VITALS (7 sets, daily range): BP systolic 111–140; BP diastolic 70–89
[2018-04-20 04:28] LABS: HEMATOCRIT 25.4 % (42.0-52.0); HEMOGLOBIN 8.8 gm/dL (14.0-18.0); MCH 31.5 pg (26.0-34.0); MCHC 34.6 g/dL (28.0-37.0); MCV 90.9 fL (80.0-100.0); RBC 2.8 mil/uL (4.50-6.00); RDW 17.3 % (10.5-14.5); WBC 3.8 thou/uL (4.0-11.0)
[2018-04-20] MEDS ORDERED: ERYTHROMYCIN250 M1 PO (15:28)
== END 2018-04-20 17:14 | DRG 853 ==
LOC: ER 07:15 → ICU 10:07 → EROBS 10:07 → ICU 11:28 → 4E 04-19 04:18
PROVIDERS: Hospitalist; Internal Medicine Gastroenterology; Internal Medicine Hematology & Oncology; Nurse Practitioner; Student in an Organized Health Care Education/Training Program
PROC: 30233N1 Transfusion of Nonautologous Red Blood Cells into Peripheral Vein, Percutaneous Approach (ICD-10-PCS; principal; 2018-04-14)
PROC: 0DJ08ZZ Inspection of Upper Intestinal Tract, Via Natural or Artificial Opening Endoscopic (ICD-10-PCS; 2018-04-18)
PROC: 06H03DZ Insertion of Intraluminal Device into Inferior Vena Cava, Percutaneous Approach (ICD-10-PCS; 2018-04-19)
DX: A41.9 Sepsis, unspecified organism (principal); R57.1 Hypovolemic shock; K92.2 Gastrointestinal hemorrhage, unspecified; D62 Acute posthemorrhagic anemia; E46 Unspecified protein-calorie malnutrition; C15.9 Malignant neoplasm of esophagus, unspecified; E78.00 Pure hypercholesterolemia, unspecified; J44.9 Chronic obstructive pulmonary disease, unspecified; K21.9 Gastro-esophageal reflux disease without esophagitis; I10 Essential (primary) hypertension; E78.5 Hyperlipidemia, unspecified; D69.6 Thrombocytopenia, unspecified; K63.5 Polyp of colon; Z90.49 Acquired absence of other specified parts of digestive tract; Z98.42 Cataract extraction status, left eye; Z98.41 Cataract extraction status, right eye; Z87.891 Personal history of nicotine dependence; Z92.21 Personal history of antineoplastic chemotherapy; Z93.1 Gastrostomy status; Z86.711 Personal history of pulmonary embolism; Z79.01 Long term (current) use of anticoagulants; Z68.23 Body mass index [BMI] 23.0-23.9, adult
CPT/HCPCS: 10078; 10783; 62110; 62900; 70005

== ENCOUNTER 2018-04-20 14:40 | Inpatient (IN) | payer OTHER, BC ==
[~2018-04-20] VITALS: Ht 172.7 cm; Wt 62.6 kg
--- NOTE | ~2018-04-20 | HC ---
[facility] [place] [address] CONSULTATION Name: DONNA SIMEON Room #: 509-P ADM IN M.R.#: [id number] Admission: 04/20/18 Attend Phys: Marko Regan MD Discharge: Date of : 47 Report #: [id number] THIS REPORT FOR: //name// CC: Marko Vargas DATE OF SERVICE: 04/22/2018 NEUROBEHAVIORAL STATUS EXAM: ATTENDING PHYSICIAN: Marko Regan MD. DRUM SANDER SETTER: Andres Garcia, PhD. CLINICAL PRESENTATION: The patient is a 73-year-old male admitted to the [facility] for evaluation and treatment of nausea, black emesis and a fall at his home. He was admitted to the ICU and started on pressor support, underwent PRBC transfusion and a PPI drip. He had been on his Xarelto for pulmonary embolism and has a history of esophageal cancer and has been undergoing chemotherapy. The patient experienced deconditioning and recommendations were made for inpatient rehabilitation to improve his strengthening and endurance along with mental status. Rehabilitaion assessment includes medical complexity with generalized debility, upper GI bleed and ulcer, hypovolemic shock, blood loss anemia, status post transfusions, history of stage 4 adenocarcinoma of the esophagus, chemo responsive, thrombocytopenia, history of PE with Xarelto stopped, COPD and HLD. A complete description of his medical condition and history along with medications can be found in his medical record. Neuropsychological consultation was requested to provide assistance in the assessment of cognitive and emotional status and to provide recommendations and services. Prior to this most recent medical event, he was living independently at home with his . He describes being independent with instrumental activities of daily living, including driving and assisting his . He reports his to have a physical disability and requiring assistance to maintain safety. This is his second marriage. His first in 2005. He remarried in 2014. He has four children that live outside the [place] area. However, his has several children that live in the community. 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 He is a [place] and a college graduate. He does not describe a prior history of treatment for mood disorder or alcohol/drug abuse. TECHNIQUES UTILIZED: Clinical interview, review of medical records, staff consultation and behavioral observation, mini mental status exam 2 [facility] [address] [place] [address] CONSULTATION Name: DONNA SIMEON Aryan Room #: 509-P [facility] IN ..#: [id number] Admission: 04/20/18 Attend Phys: Marko Regan MD Discharge: Date of : 47 Report #: [id number] version, clock drawing and verbal fluency assessment (category and letter fluency). EXAMINATION FINDINGS: The patient was alert and cooperative with the assessment. He accurately described events surrounding his admission. There is no evidence of aphasia. His thoughts are logical and goal oriented. There is no evidence of thought disorder. He does not report auditory or visual hallucinations. Symptoms to include intermittent difficulty with his memory that includes a period of disorientation upon admission and surrounding his initial hospitalization. He does not report difficulty with word finding, sleep or appetite. His mood as good, however, he does have increased anxiety in regard to the well-being of his and the extent of his medical condition. He indicates trouble with cognition that appeared to be correlated with the onset of chemotherapy for esophageal cancer. His performance on the MMSE 2 brief version was extremely low with a raw score of 11 of 16 and a T score of 18. He was 3/3 for initial registration, 5/5 for orientation to time, 3/[address] and 0/3 for immediate recall of 3 items after a brief time delay and distraction. His performance improved on the MMSE 2 standard version to a raw score of 24/30 and a T score of 34, which is at the 5th percentile. He was 5/5 for serial sevens, 2/2 for naming, 1/1 for repetition and 3/3 for auditory comprehension. He could read and follow a single command and write a sentence. The patient was unable to accurately copy a simple geometric design. Decreased upper extremity dexterity is suggested. The patient was accurate in his drawing of a clock and placement of the hands, indicating good spatial organization and planning. Category fluency was in the mild to moderate range of impairment with a raw score 29 and a T score of 34. Letter fluency was in the moderate to severe range of impairment with a raw score of 9 and a T score of 30. Overall, verbal fluency was in the moderate range of impairment with a T score of 28 and a raw score of 38. The patient is presenting with impairment in immediate recall and aspects of verbal fluency that suggest diminished thought organization, planning and problem solving. DIAGNOSTIC IMPRESSION: Neurocognitive disorder, unspecified, without behavior disorder -- extent to be determined, likely in the moderate range. RECOMMENDATIONS: The patient may benefit from speech therapy to assist in the development of compensatory strategies for areas of decreased cognition. More thorough neuropsych assessment upon discharge will be of benefit to clarify his limitations in neurocognitive functioning. At this time, the patient should [address] [address] CONSULTATION Name: DONNA SIMEON Room #: 509-P ADM IN M.R.#: [id number] Admission: 04/20/18 Attend Phys: Marko Regan MD Discharge: Date of : 47 Report #: [id number] discontinue driving until a more thorough assessment of cognition can be arranged. He is likely to need help with management of medication, finances and nutrition. His mood appears good and does not appear to require treatment for depression or anxiety. However, family education may be necessary in regard to areas of decreased cognition, for which he will require increased assistance. Thank you very much for allowing me to provide the consultation on this patient. <ELECTRONICALLY SIGNED> By: Andres Garcia, PhD 04/24/18 [phone] 0015 Andres Garcia, PhD /nt
--- NOTE | ~2018-04-20 | PLAN ---
[facility] [place] [address] REHAB UNIT PLAN OF CARE Name: DONNA SIMEON Room #: 509-P [facility] IN M.R.#: [id number] Admission: 04/20/18 Attend Phys: Marko Regan MD Discharge: 04/30/18 Date of : 47 Report #: [id number] THIS REPORT FOR: //name// CC: Marko Vargas DATE OF SERVICE: 04/23/2018 PROGRESS NOTE AND OVERALL PLAN OF CARE SUBJECTIVE: The patient was seen earlier. No complaints of abdominal pain or nausea. Appears to be swallowing without any issues. He is min assist with sit to stand, min assist ambulating 350 feet without an assistive device. Oriented x 3. ASSESSMENT: 1. Medical complex with generalized debilitation. 2. Upper gastrointestinal bleed with ulcer. 3. Hypovolemic shock. 4. Acute on chronic blood loss anemia, status post transfusions. 5. History of stage 4 adenocarcinoma of the esophagus, chemo-responsive. 6. Thrombocytopenia. 7. History of pulmonary embolism with Xarelto stopped. 8. Chronic obstructive pulmonary disease. 9. Hyperlipidemia. PLAN: The overall plan of care is based on the preadmission screen, post-admission physician evaluation and information garnered from therapy assessments. 1. Estimated length of stay is probably fairly short 7-10 days, pending progress. 2. Medical prognosis is reasonably good. 3. Anticipated interventions includes the interdisciplinary acute inpatient rehabilitation program with PT, OT. Rehab nursing is assisting regarding medication management, skin care prophylaxis, bowel and bladder issues and nursing education. Case management is involved as well as the rest of the interdisciplinary acute inpatient rehabilitation team. 4. Anticipated functional outcomes would be for the patient to become modified independent with transfers, mobility, ADLs so that he can hopefully return back to the home setting. 5. Discharge destination would be back to the home setting where he lives in an apartment with his . [facility] [address] [place] [address] REHAB UNIT PLAN OF CARE Name: DONNA SIMEON Room #: 509-P [facility]#: [id number] Admission: 04/20/18 Attend Phys: Marko Regan MD Discharge: 04/30/18 Date of : 47 Report #: [id number] 6. Expected therapy by discipline includes PT and OT 1-1/2 hours per day each 5 days a week throughout the duration of the acute inpatient rehabilitation stay. <ELECTRONICALLY SIGNED> By: Marko Regan MD 05/01/18 1121 1216 [id number] Marko Regan MD /[facility]
[2018-04-20] MEDS ORDERED: ERYTHROMYCIN250 M1 PO (15:28)
[2018-04-20 20:57] VITALS: BP 134/84
[2018-04-21 05:30] LABS: HEMOGLOBIN 8.7 gm/dL (14.0-18.0); MCH 31.4 pg (26.0-34.0); MCHC 34.7 g/dL (28.0-37.0); MCV 90.5 fL (80.0-100.0); RBC 2.76 mil/uL (4.50-6.00); RDW 17.1 % (10.5-14.5); WBC 2.9 thou/uL (4.0-11.0)
[2018-04-21 05:42] LABS: CALCIUM 8.5 mg/dL (8.5-10.1); CREATININE 0.8 mg/dL (0.7-1.3); POTASSIUM 3.3 mmol/L (3.5-5.1)
[2018-04-21 07:23] VITALS: BP 98/55
[2018-04-21 19:20] VITALS: BP 115/74
[2018-04-22 08:29] VITALS: BP 114/72
[2018-04-22 11:05] LABS: HEMATOCRIT 28.3 % (42.0-52.0); HEMOGLOBIN 9.6 gm/dL (14.0-18.0); MCH 31.6 pg (26.0-34.0); MCHC 34.1 g/dL (28.0-37.0); MCV 92.8 fL (80.0-100.0); RBC 3.05 mil/uL (4.50-6.00); RDW 18.2 % (10.5-14.5); WBC 4.9 thou/uL (4.0-11.0)
[2018-04-22 11:14] LABS: CALCIUM 9.1 mg/dL (8.5-10.1); CREATININE 1.1 mg/dL (0.7-1.3); MAGNESIUM 1.9 mg/dL (1.8-2.4); POTASSIUM 3.4 mmol/L (3.5-5.1)
[2018-04-22 16:55] VITALS: BP 100/62
[2018-04-23 07:30] VITALS: BP 103/62
[2018-04-23 19:25] VITALS: BP 111/69
[2018-04-24 08:05] VITALS: BP 99/64
[2018-04-24 15:41] LABS: PLATELET COUNT 49 thou/uL (150-400)
[2018-04-24 15:43] LABS: HEMATOCRIT 26.6 % (42.0-52.0); MCH 32.3 pg (26.0-34.0); MCV 94.9 fL (80.0-100.0); RDW 19.9 % (10.5-14.5); WBC 10.5 thou/uL (4.0-11.0)
[2018-04-24 16:12] VITALS: BP 99/64
[2018-04-24 16:12] LABS: ABSOLUTE NEUTROPHILS 8.7 thou/uL (1.4-8.2)
[2018-04-24 16:13] LABS: ANISOCYTOSIS 1+; POLYCHROMASIA OCCASIONAL
[2018-04-24 20:50] VITALS: BP 94/60
[2018-04-25] VITALS: BP 119/58
[2018-04-25 04:40] LABS: HEMATOCRIT 23.9 % (42.0-52.0); WBC 7.1 thou/uL (4.0-11.0)
[2018-04-25 04:43] LABS: HEMOGLOBIN 8.2 gm/dL (14.0-18.0); MCH 32.3 pg (26.0-34.0); MCHC 34.2 g/dL (28.0-37.0); MCV 94.5 fL (80.0-100.0); RBC 2.53 mil/uL (4.50-6.00); RDW 20.6 % (10.5-14.5)
[2018-04-25 07:30] VITALS: BP 119/70
[2018-04-25 08:32] LABS: CALCIUM 8.5 mg/dL (8.5-10.1); CREATININE 1.1 mg/dL (0.7-1.3); POTASSIUM 4.7 mmol/L (3.5-5.1)
[2018-04-25 09:26] LABS: HEMATOCRIT 23.9 % (42.0-52.0)
[2018-04-25 14:14] VITALS: BP 103/68
[2018-04-25 16:17] VITALS: BP 92/49
[2018-04-25 19:00] VITALS: BP 93/57
[2018-04-25 19:02] VITALS: BP 96/61
[2018-04-26 07:25] VITALS: BP 83/42
[2018-04-26 10:29] LABS: HEMATOCRIT 30.8 % (42.0-52.0)
[2018-04-26 10:31] LABS: HEMOGLOBIN 10.4 gm/dL (14.0-18.0)
[2018-04-26 10:37] VITALS: BP 82/52
[2018-04-26 13:10] VITALS: BP 84/50
[2018-04-26 14:33] VITALS: BP 80/47
[2018-04-26 17:19] LABS: HEMATOCRIT 25.6 % (42.0-52.0); HEMOGLOBIN 8.8 gm/dL (14.0-18.0); MCH 31.9 pg (26.0-34.0); MCHC 34.3 g/dL (28.0-37.0); PLATELET COUNT 54 thou/uL (150-400); RBC 2.75 mil/uL (4.50-6.00); RDW 20.3 % (10.5-14.5); WBC 8.1 thou/uL (4.0-11.0)
[2018-04-26 17:26] LABS: CALCIUM 7.7 mg/dL (8.5-10.1); POTASSIUM 4.5 mmol/L (3.5-5.1)
[2018-04-26 17:48] LABS: ABSOLUTE NEUTROPHILS 5.3 thou/uL (1.4-8.2)
[2018-04-26 17:49] LABS: OVALOCYTES 1+; POLYCHROMASIA 2+; TEARDROPS 1+; TOXIC GRANULATION SLIGHT
[2018-04-26 20:00] VITALS: BP 80/46
[2018-04-27 06:19] LABS: HEMOGLOBIN 8.5 gm/dL (14.0-18.0); MCH 31.7 pg (26.0-34.0); MCHC 33.8 g/dL (28.0-37.0); MCV 93.6 fL (80.0-100.0); RBC 2.67 mil/uL (4.50-6.00); RDW 20.2 % (10.5-14.5); WBC 7.4 thou/uL (4.0-11.0)
[2018-04-27 06:36] LABS: ALBUMIN 2.2 g/dL (3.4-5.0); CALCIUM 7.7 mg/dL (8.5-10.1); MAGNESIUM 1.5 mg/dL (1.8-2.4); POTASSIUM 4.4 mmol/L (3.5-5.1); TOTAL BILIRUBIN 0.3 mg/dL (<0.1-1.0); TOTAL PROTEIN 4.6 g/dL (6.4-8.2)
[2018-04-27 07:49] VITALS: BP 97/62
[2018-04-27 11:51] VITALS: BP 82/44
[2018-04-27 16:32] VITALS: BP 98/60
[2018-04-27 20:00] VITALS: BP 96/58
[2018-04-28 00:30] VITALS: BP 86/61
[2018-04-28 03:41] LABS: HEMATOCRIT 27.3 % (42.0-52.0)
[2018-04-28 03:53] VITALS: BP 106/74
[2018-04-28 07:13] VITALS: BP 110/63
[2018-04-28 11:53] VITALS: BP 112/69
[2018-04-28 16:27] VITALS: BP 115/69
[2018-04-29 01:00] VITALS: BP 98/65
[2018-04-29 04:32] VITALS: BP 95/62
[2018-04-29 07:53] VITALS: BP 94/61
[2018-04-29 16:32] VITALS: BP 109/65
[2018-04-29 19:45] VITALS: BP 95/46
[2018-04-30 06:49] LABS: HEMATOCRIT 28.6 % (42.0-52.0); HEMOGLOBIN 9.6 gm/dL (14.0-18.0)
[2018-04-30 08:13] VITALS: BP 121/78
== END 2018-04-30 15:00 | DRG 380 ==
PROVIDERS: Internal Medicine; Internal Medicine Gastroenterology; Nurse Practitioner; Nurse Practitioner Family; Physical Medicine & Rehabilitation
PROC: 30233N1 Transfusion of Nonautologous Red Blood Cells into Peripheral Vein, Percutaneous Approach (ICD-10-PCS; principal; 2018-04-25)
DX: K22.11 Ulcer of esophagus with bleeding (principal); R57.1 Hypovolemic shock; E43 Unspecified severe protein-calorie malnutrition; D62 Acute posthemorrhagic anemia; C15.9 Malignant neoplasm of esophagus, unspecified; R53.81 Other malaise; D69.6 Thrombocytopenia, unspecified; E87.6 Hypokalemia; E78.5 Hyperlipidemia, unspecified; J44.9 Chronic obstructive pulmonary disease, unspecified; R53.1 Weakness; D72.829 Elevated white blood cell count, unspecified; E83.42 Hypomagnesemia; I95.9 Hypotension, unspecified; Z90.49 Acquired absence of other specified parts of digestive tract; Z68.21 Body mass index [BMI] 21.0-21.9, adult; Z86.711 Personal history of pulmonary embolism; Z92.21 Personal history of antineoplastic chemotherapy; Z79.01 Long term (current) use of anticoagulants; Z79.899 Other long term (current) drug therapy
CPT/HCPCS: 10112

== ENCOUNTER 2018-05-19 23:42 | Inpatient (IN) | payer OTHER, BC ==
[~2018-05-19] VITALS: Ht 172.7 cm; Wt 64.8 kg
--- NOTE | ~2018-05-19 | EKG ---
[address] [place] [address] ELECTROCARDIOGRAM REPORT Name: DONNA SIMEON Room #: 423-1 ADM IN M.R.#: [id number] Admission: 05/20/18 Attend Phys: Andres Vargas MD Discharge: Date of : 47 Report #: [id number] THIS REPORT FOR: //name// [facility] ED Test Date: 2018-05-20 Test Time: 00:00:30 Pat Name: DONNA SIMEON Department: Room: [facility] Gender: M Chemistry Quality Control Analyst: CHARMAINE : 1945 Requested By: Herbert Moody Order Number: [id number] MD: Mir Shepherd Measurements Intervals [place] Rate: 90 P: 79 NM: 191 QRS: 14 QRSD: 81 T: 52 QT: 399 QTc: 489 Interpretive Statements Sinus rhythm Low voltage, extremity leads Borderline prolonged QT interval Compared to ECG 04/14/2018 07:38:40 Sinus tachycardia no longer present Electronically Signed On 05-20-2018 10:30:04 WORKFORCE MANAGEMENT MANAGER by Mir Shepherd [email or web address] <ELECTRONICALLY SIGNED> By: Mir Shepherd MD 05/20/18 1030 0000 0000 Mir Shepherd MD /YAMILA
--- NOTE | ~2018-05-19 | HC ---
[facility] [place] [address] CONSULTATION Name: DONNA SIMEON Aryan Room #: 423-1 [facility] IN ..#: [id number] Admission: 05/20/18 Attend Phys: Andres Vargas MD Discharge: 05/22/18 Date of : 47 Report #: [id number] THIS REPORT FOR: //name// CC: Boaz Vargas GASTROENTEROLOGY CONSULTATION HISTORY OF PRESENT ILLNESS: The patient is a very pleasant 73-year-old male who I have been asked to see for further evaluation of his acute nausea and vomiting which occurred over the course of the last 24 hours. He denies any other GI symptoms. He has had the unfortunate diagnosis of stage 4 esophageal carcinoma, which was very responsive to chemotherapy; and on his last upper endoscopy approximately one month ago, he had complete resolution of a large esophageal mass, with only remaining small clean ulceration. He was at rehab, doing quite well and then started having nausea and vomiting yesterday. He has had no hematemesis and no significant abdominal pain, but some epigastric pain. He denies significant pain medications and has been thinking about taking more pain medications because he has had escalating pain in his epigastrium. He denies fevers or chills. PAST MEDICAL HISTORY: His medical history is well documented in the chart, but includes cholecystectomy; cataract; hypercholesterolemia; COPD; esophageal cancer diagnosed in November, as detailed above; hypertension and sepsis. He has had a PEG tube also. MEDICATIONS: His medications on presentation include Carafate, pantoprazole, oxycodone, aspirin, calcium, multivitamin, fexofenadine and oxycodone; the pain medicines he denies taking. FAMILY HISTORY: Noncontributory. SOCIAL HISTORY: Noncontributory. REVIEW OF SYSTEMS: He has had weakness and weight loss. He denies head, eyes, ears, nose or throat complaints. He denies chest pain, chest palpitation, chest pressure, cough, shortness of breath or wheezing, genitourinary, musculoskeletal or neuropsychiatric complaints otherwise. PHYSICAL EXAMINATION: VITAL SIGNS: Afebrile. Vital signs are stable. HEENT: Nonicteric. NECK: No JVD, thyromegaly or bruits. CARDIOVASCULAR: Regular. LUNGS: Clear. ABDOMEN: Soft and nondistended. Normoactive bowel sounds. No hepatosplenomegaly. No stigmata of chronic liver disease. [address] [address] CONSULTATION Name: DONNA SIMEON Room #: 423-1 [facility] IN [facility]#: [id number] Admission: 05/20/18 Attend Phys: Andres Vargas MD Discharge: 05/22/18 Date of : 49 Report #: [id number] EXTREMITIES: Deferred. NEUROLOGICAL EXAMINATION: Deferred. RECTAL EXAMINATION: Deferred. PERTINENT LABORATORY DATA: Hemoglobin 11.4, white count 6.2 and platelet count 195,000. Serum chemistry notable for glucose 143. Liver tests normal, except for alkaline phosphatase 159. Lipase 59. Albumin 3.3. U/A looked okay. Chest x-ray, interstitial infiltrates in the left lung base, stable scarring in the right mid and lower lung. SUMMARY: In summary, the patient most likely has nausea and vomiting related to acute illness, possibly developing pneumonia. At this point, I would pursue with no further GI workup, but advance his diet as he tolerates and treat him symptomatically. Of course, if this persists, there is always the possibility of mesenteric and peritoneal disease with stage 4 esophageal cancer, which could cause partial obstruction, although I see no evidence of obstruction. We will proceed with a KUB in the morning and follow up concurrently. I appreciate the opportunity to participate in the care of this nice man. <ELECTRONICALLY SIGNED> By: Boaz John MD 05/23/18 0853 0958 2323 Art Putnam MD /nt
[~2018-05-19 23:42] MED LIST changes: +ERYTHROMYCIN250 M1 PO
[2018-05-19 23:43] VITALS: BP 149/98
[2018-05-20 00:30] LABS: HEMOGLOBIN 11.4 gm/dL (14.0-18.0); PLATELET COUNT 195 thou/uL (150-400)
[2018-05-20 00:31] LABS: BASOPHILS 0.3 % (0.0-2.0); HEMATOCRIT 33.2 % (42.0-52.0); LYMPHOCYTES 17.8 % (24.0-44.0); MCH 31.7 pg (26.0-34.0); MCHC 34.3 g/dL (28.0-37.0); MCV 92.5 fL (80.0-100.0); MONOCYTES 2.7 % (1.0-8.0); POLYS 79.2 % (36.0-66.0); RBC 3.59 mil/uL (4.50-6.00); WBC 6.2 thou/uL (4.0-11.0)
[2018-05-20 00:35] LABS: ANION GAP 10 mmol/L (7-16); BUN 16 mg/dL (7-18); CHLORIDE 103 mmol/L (98-107); CO2 26 mmol/L (21-32); GLUCOSE 143 mg/dL (74-106); SODIUM 139 mmol/L (136-145)
[2018-05-20 00:44] LABS: ALBUMIN 3.3 g/dL (3.4-5.0); LIPASE 59 U/L (73-393); SGOT 27 U/L (15-37); SGPT 31 U/L (30-65); TOTAL BILIRUBIN 0.5 mg/dL (<0.1-1.0); TOTAL PROTEIN 6.8 g/dL (6.4-8.2); TROPONIN-I <0.06 ng/mL (<0.06)
[2018-05-20 02:04] LABS: URINE BILIRUBIN NEGATIVE (Negative); URINE BLOOD TRACE (Negative); URINE CLARITY CLEAR; URINE COLOR YELLOW; URINE GLUCOSE-RANDOM* NEGATIVE (Negative); URINE KETONES 1+ (Negative); URINE LEUKOCYTES-REFLEX NEGATIVE (Negative); URINE NITRITE-REFLEX NEGATIVE (Negative); URINE PROTEIN (DIPSTICK) NEGATIVE (Negative); URINE SPECIFIC GRAVITY 1.025 (1.005-1.035); URINE UROBILINOGEN 0.2 E.U./dl (0.2-1.0)
[2018-05-20 03:41] VITALS: BP 128/89
[2018-05-20 04:09] VITALS: BP 128/89
[2018-05-20 04:40] VITALS: BP 139/80
[2018-05-20 07:25] VITALS: BP 150/91
[2018-05-20 16:15] VITALS: BP 133/81
[2018-05-20 21:00] VITALS: BP 107/65
[2018-05-21 07:18] VITALS: BP 110/62
[2018-05-21 15:29] VITALS: BP 113/64
[2018-05-21 19:28] VITALS: BP 116/58
[2018-05-22 03:52] VITALS: BP 116/72
[2018-05-22 07:33] VITALS: BP 104/67
[2018-05-22 11:04] VITALS: BP 104/67
== END 2018-05-22 12:27 | disposition home or self-care (01) | DRG 392 ==
LOC: ER 23:42 → EROBS 05-20 03:24 → 4E 05-20 03:24
PROVIDERS: Emergency Medicine
DX: R11.2 Nausea with vomiting, unspecified (principal); C15.9 Malignant neoplasm of esophagus, unspecified; E78.00 Pure hypercholesterolemia, unspecified; J44.9 Chronic obstructive pulmonary disease, unspecified; K21.9 Gastro-esophageal reflux disease without esophagitis; I10 Essential (primary) hypertension; E78.5 Hyperlipidemia, unspecified; D64.9 Anemia, unspecified; Z90.49 Acquired absence of other specified parts of digestive tract; Z98.42 Cataract extraction status, left eye; Z98.41 Cataract extraction status, right eye; Z86.711 Personal history of pulmonary embolism; Z95.828 Presence of other vascular implants and grafts; Z93.1 Gastrostomy status; Z87.891 Personal history of nicotine dependence; Z86.010 Personal history of colon polyps; Z23 Encounter for immunization
CPT/HCPCS: 10084

== ENCOUNTER 2018-05-29 20:31 | Emergency (ER) | payer OTHER, BC ==
[~2018-05-29] VITALS: Ht 172.7 cm; Wt 65.8 kg
--- NOTE | ~2018-05-29 | EKG ---
[address] [address] ELECTROCARDIOGRAM REPORT Name: DONNA SIMEON Room #: [facility]#: [id number] Admission: 05/29/18 Attend Phys: Discharge: 05/29/18 Date of : 49 Report #: [id number] THIS REPORT FOR: //name// [facility] ED Test Date: 2018-05-29 Test Time: 22:02:57 Pat Name: DONNA SIMEON Department: Room: Gender: M Sound Recording Technician: ana : 1945 Requested By: Herbert Moody Order Number: [id number] MD: Mir Shepherd Measurements Intervals [place] Rate: 80 P: 80 ID: 175 QRS: 21 QRSD: 76 T: 56 QT: 419 QTc: 484 Interpretive Statements Sinus rhythm Low voltage, extremity leads Borderline prolonged QT interval Compared to ECG 05/20/2018 00:00:30 No significant changes Electronically Signed On 05-30-2018 8:19:53 EVENTS INTERN by Mir Shepherd [email or web address] <ELECTRONICALLY SIGNED> By: Mir Shepherd MD 05/30/18 08 01 220 MD CHRISTINA Hough
[2018-05-29 21:11] LABS: BASOPHILS 0.5 % (0.0-2.0); EOSINOPHILS 0.1 % (0.0-3.0); HEMATOCRIT 35.8 % (42.0-52.0); HEMOGLOBIN 11.9 gm/dL (14.0-18.0); MCH 30.3 pg (26.0-34.0); MCHC 33.1 g/dL (28.0-37.0); MCV 91.5 fL (80.0-100.0); MONOCYTES 6.6 % (1.0-8.0); PLATELET COUNT 171 thou/uL (150-400); POLYS 62.8 % (36.0-66.0); RBC 3.91 mil/uL (4.50-6.00); RDW 16.4 % (10.5-14.5); URINE BLOOD TRACE (Negative); URINE CLARITY CLEAR; URINE COLOR YELLOW; URINE GLUCOSE-RANDOM* NEGATIVE (Negative); URINE KETONES 3+ (Negative); URINE LEUKOCYTES-REFLEX NEGATIVE (Negative); URINE NITRITE-REFLEX NEGATIVE (Negative); URINE PROTEIN (DIPSTICK) NEGATIVE (Negative); URINE SPECIFIC GRAVITY 1.015 (1.005-1.035); URINE UROBILINOGEN 0.2 E.U./dl (0.2-1.0); WBC 6.4 thou/uL (4.0-11.0)
[2018-05-29 21:20] LABS: CALCIUM 9.1 mg/dL (8.5-10.1); CREATININE 1.1 mg/dL (0.7-1.3); POTASSIUM 3.7 mmol/L (3.5-5.1)
[2018-05-29 21:21] LABS: ICTOTEST (BILI CONFIRMATORY) Negative (Negative); URINE BILIRUBIN NEGATIVE (Negative); URINE REDUCING SUBSTANCE NEGATIVE
[2018-05-29 21:26] LABS: ALBUMIN 3.5 g/dL (3.4-5.0); TOTAL BILIRUBIN 0.7 mg/dL (<0.1-1.0); TOTAL PROTEIN 6.9 g/dL (6.4-8.2)
[2018-05-29] MEDS ORDERED: PROMS25 WY RECTAL (21:49)
[2018-05-29 23:24] VITALS: BP 145/84
== END 2018-05-29 23:25 | disposition home or self-care (01) ==
LOC: ER 20:31
PROVIDERS: Emergency Medicine
DX: R11.2 Nausea with vomiting, unspecified (principal); G89.29 Other chronic pain; R10.13 Epigastric pain; E78.00 Pure hypercholesterolemia, unspecified; J44.9 Chronic obstructive pulmonary disease, unspecified; K21.9 Gastro-esophageal reflux disease without esophagitis; I10 Essential (primary) hypertension; Z87.891 Personal history of nicotine dependence; Z85.01 Personal history of malignant neoplasm of esophagus

== ENCOUNTER → 2018-06-08 | Outpatient (CLI) | payer OTHER, BC ==
[~2018-06-08] VITALS: Ht 172.7 cm; Wt 61.2 kg
[~2018-06-08] MED LIST changes: +ONDANSETRON HCL4 M2 PO; +PROMS25 WY RECTAL
--- NOTE | ~2018-06-08 | PATH ---
[facility] [address] [place] [address] PATHOLOGY RPT PROCEDURE Name: TOMMIE SIMEON Room #: REG [facility] Eagle.#: [id number] Admission: 06/08/18 Date of : 49 Discharge: Report #: [id number] Path Case #: [id number] [facility] Accession Number: [id number] . 01 Material submitted: . BX ESOPHAGUS . 01 Clinical history: . Esophageal cancer, bleeding Gastroparesis, esophageal cancer History esophagus cancer rule out esophagus cancer . 02 Diagnosis: "BX esophagus GE junction", biopsy: - GASTRIC CARDIAC TYPE MUCOSA WITH INVOLVEMENT BY POORLY DIFFERENTIATED CARCINOMA. (SEE COMMENT) S/06/14/2018 . 02 Comment: Properly controlled immunohistochemical and special stains are performed. . Block A1 AE1/AE3 - Tumor cells reactive CD56 - Tumor cells nonreactive Chromogranin - Tumor cells nonreactive Synaptophysin - Tumor cells nonreactive CD45 - Tumor cells nonreactive S-100 - Tumor cells nonreactive P63 - Tumor cells nonreactive Ki67 - Proliferative index of 80% Mucicarmine - Rare positivity within tumor cells . The patient has a history of "moderate to poorly differentiated carcinoma" from a previous distal esophageal biopsy ([id number]) and "positive for malignancy, compatible with a metastatic carcinoma morphologically similar to the mass lesion distal esophagus" from a previous liver mass needle core biopsy ([id number]). The H and E stain slides of the current case are co-reviewed with Dr. Franki France. Clinical and radiographic correlation is recommended. . (CLW:jamaal; 06/14/2018) . 02 Electronically signed: . Almaz Colvin MD, Pathologist NPI- [id number] . 01 Gross description: . [address] [address] PATHOLOGY RPT PROCEDURE Name: TOMMIE SIMEON Room #: REG [facility] Nicolas#: [id number] Admission: 06/08/18 Date of : 49 Discharge: Report #: [id number] Path Case #: [id number] The specimen is received in formalin, labeled "Tommie Simeon, BX GE junction-esoph" and consists of multiple fragments of soft montoya-baird tissue measuring 1.1 x 1.1 x 0.2 cm in aggregate which are entirely submitted in A1. (SDY; 06/11/2018) SYU/SYU . 02 Pathologist provided ICD-10: C16.0 . 02 CPT . 218534, S91261, R00922, 013187, 295481 Specimen Comment: A courtesy copy of this report has been sent to Specimen Comment: [phone], . Specimen Comment: Report sent to and Performed at: 01 [facility] [address] [id number] MD Osmany Vilchis MD Phone: [phone] Performed at: 02 [facility] [address] [id number] MD Lorenzo Snider MD Phone: [phone]
--- NOTE | ~2018-06-08 | P ---
[facility] [place] [address] PROCEDURE REPORT Name: DONNA SIMEON Aryan Room #: REG [facility]#: [id number] Admission: 06/08/18 Attend Phys: Devin Cook MD Discharge: Date of : 49 Report #: [id number] THIS REPORT FOR: //name// CC: Devin Escobar MD BRIEF HISTORY: The patient is a 73-year-old male, known to me with diagnosis of esophageal cancer in November of this year. He has been treated with chemotherapy with Dr. Escobar and has had significant improvement of his lesion. His swallowing function is normal at this time. He presents for followup and reevaluation of his esophageal cancer. PREOPERATIVE DIAGNOSIS: Esophageal cancer. POSTOPERATIVE DIAGNOSES: 1. History of esophageal cancer with abnormality at distal esophagus, rule out recurrent cancer. 2. Retained material in stomach consistent with gastroparesis. MEDICATIONS: Deep sedation with propofol per Anesthesia. SPECIMEN: Biopsy of distal esophagus, rule out persistent neoplasia. ESTIMATED BLOOD LOSS: 3 mL. PROCEDURE: EGD with biopsy. FINDINGS: Prior to propofol sedation, procedure of upper endoscopy was reviewed with the patient as well as potential risks and its complications. He indicates he understands and desires to proceed. DESCRIPTION OF PROCEDURE: With the patient in left lateral decubitus position, the Olympus video endoscope was inserted in the cervical esophagus under direct vision without difficulty. Examination of this organ through its entire length revealed normal esophageal mucosa down the squamocolumnar junction. At the squamocolumnar junction, there was some mucosal irregularity raising the possibility of a persistent neoplastic process, and multiple biopsies were obtained. However, discrete mass was not seen. A definite stricture was not seen. The scope was advanced into the stomach and examined on end view as well as retroflexed views. There was a small amount of liquid and solid material within the stomach consistent with gastroparesis. There was no evidence of outlet obstruction. In addition, on the anterior aspect of the body of the stomach, PEG tube bolster was seen and was noted to be unremarkable. Upon retroflexion, no mass lesions were seen, in particular mass lesion was not seen in the cardia of the stomach. The pylorus, duodenal bulb and postbulbar [address] [address] PROCEDURE REPORT Name: DONNA SIMEON Room #: REG [facility]#: [id number] Admission: 06/08/18 Attend Phys: Devin Cook MD Discharge: Date of : 49 Report #: [id number] duodenal sweep were all inspected and noted to be unremarkable. At that point, the scope was slowly withdrawn and careful circumferential views confirmed the above findings. The patient tolerated the procedure well. CONDITION OF THE PATIENT UPON DISCHARGE: Following procedure, the patient was drowsy and will be discharged home when fully ambulatory. INSTRUCTIONS TO THE PATIENT AND FAMILY AT THE TIME OF DISCHARGE: A definite mass was not seen, but there was some mucosal irregularity. These may be changes related to chemotherapy, but cannot entirely exclude a neoplastic process. We will follow up on biopsies and make further recommendations. He will return to care of Dr. Vargas and return to Dr. Escobar. If he continues to do well and does not require any additional treatment, we may consider removal of the PEG tube at a later date. <ELECTRONICALLY SIGNED> By: Devin Cook MD 06/14/18 1300 [id number] Devin Cook MD /nt
== END | disposition home or self-care (01) ==
LOC: GI 08:41
DX: C15.9 Malignant neoplasm of esophagus, unspecified (principal); K31.84 Gastroparesis; K92.2 Gastrointestinal hemorrhage, unspecified; E78.00 Pure hypercholesterolemia, unspecified; D64.9 Anemia, unspecified; J44.9 Chronic obstructive pulmonary disease, unspecified; K21.9 Gastro-esophageal reflux disease without esophagitis; Z86.73 Personal history of transient ischemic attack (TIA), and cerebral infarction without residual deficits; Z79.82 Long term (current) use of aspirin; Z79.899 Other long term (current) drug therapy; Z87.891 Personal history of nicotine dependence; Z98.42 Cataract extraction status, left eye; Z98.41 Cataract extraction status, right eye; Z98.890 Other specified postprocedural states